=== PATIENT | male | born 1960 | race Caucasian/White ===

== ENCOUNTER 2025-06-30 08:55 | Outpatient (CLI) | payer MEDICARE, SELFPAY ==
[2025-06-30 23:01] LABS: Hematocrit 46.9 % (42.0-52.0); Hemoglobin 14.7 g/dL (14.1-18.0); Immature Granulocytes % 0.2 %; Mean Corpuscular HGB Conc 31.3 g/dL (31.8-35.4); Mean Corpuscular Hemoglobin 31.0 pg (27.0-31.2); Mean Corpuscular Volume 98.9 fl (80-94); Nucleated Red Blood Cells % 0 %; Platelet Count 211 K/mm3 (142-424); Red Blood Count 4.74 M/mm3 (4.60-6.20); Red Cell Distribution Width-SD 47.8 fL; White Blood Count 5.9 K/mm3 (4.8-10.8)
[2025-06-30 23:15] LABS: Alanine Aminotransferase 17 U/L (12-78); Albumin Level 4.4 g/dl (3.5-5.0); Albumin/Globulin Ratio 1.9 (1.1-1.8); Alkaline Phosphatase 71 U/L (38-126); Anion Gap 15.8 mEq/L (5-15); Aspartate Amino Transferase 25 U/L (17-59); Bilirubin,Total 0.5 mg/dl (0.2-1.3); Blood Urea Nitrogen 14 mg/dl (9-20); Calcium 9.3 mg/dl (8.4-10.2); Carbon Dioxide 27 mmol/L (22.0-30.0); Chloride 101 mmol/L (98-107); Cholesterol 199 mg/dl (140-200); Creatinine,Serum 0.70 mg/dl (0.66-1.25); Estimated Glomerular Filt Rate 113 ml/min (>60); GFR (African American) 137 ML/MIN (>60); Globulin 2.3 g/dL (1.3-3.2); Glucose 52 mg/dl (74-100); HDL Cholesterol 35 mg/dl (40-60); Potassium 4.8 mmoL/L (3.5-5.1); Sodium 139 mmol/L (136-145); Total Protein,Serum 6.7 g/dl (6.3-8.2); Triglycerides 240 mg/dl (30-150)
[2025-06-30 23:45] LABS: Thyroid Stimulating Hormone 1.57 uIU/mL (0.465-4.68)
== END 2025-06-30 23:59 ==
LOC: LAB.DROPOF 07-01 10:00
PROVIDERS: PCP Family Medicine; Visit Provider Family Medicine
DX: I10 Essential (primary) hypertension (principal); Z11.4 Encounter for screening for human immunodeficiency virus [HIV]
CPT/HCPCS: 80053; 80061; 84443; 85025; 87389

== ENCOUNTER 2025-07-07 14:45 | Outpatient (CLI) | payer MEDICARE, SELFPAY ==
--- NOTE | 2025-07-07 15:30 | CT_ITS ---
FINAL REPORT TECHNIQUE: Thin section axial images were obtained through the lungs using a low-dose technique per lung cancer screening protocol. Reconstruction images were obtained using the axial data. Exam was performed using dose reduction technique. This study was performed with techniques to keep radiation doses as low as reasonably achievable (ALARA). Individualized dose reduction techniques using automated exposure control or adjustment of mA and/or kV according to the patient's size were employed. CLINICAL HISTORY: lung cancer screening smoker 1 ppd x 57 years COMPARISON: None FINDINGS: CTDLvol: 2.90 DLP: 116.72 Current smoker 57 pack year history Lungs: No acute pulmonary abnormality. Biapical scarring is present. There is discoid atelectasis in the lingula. There is evidence of prior granulomatous disease. There is a small focal reticulonodular opacity in the right middle lobe best seen on image #75 of series 4. Favor that this represents infectious or inflammatory etiology. Lymph nodes: No thoracic lymphadenopathy. Mediastinum: Heart size is normal. Pleura/pericardium: No pleural or pericardial effusion. Other: Pancreatic calcifications are noted, consistent with chronic pancreatitis. IMPRESSION: Small focal reticulonodular opacity in the right middle lobe, most likely infectious or inflammatory. Lung RADS: 0S, the S designation for chronic pancreatitis. Recommendation: 3-month follow-up LDCT. Reviewed, Interpreted and Dictated by Shari Schwartz MD Transcribed by Stephanie Vidal Authenticated and [facility]
== END 2025-07-07 23:59 | disposition home or self-care (01) ==
LOC: RAD 14:46
PROVIDERS: PCP Family Medicine; Visit Provider Family Medicine
DX: Z12.2 Encounter for screening for malignant neoplasm of respiratory organs (principal); F17.210 Nicotine dependence, cigarettes, uncomplicated; R91.1 Solitary pulmonary nodule; J98.4 Other disorders of lung; K86.89 Other specified diseases of pancreas
CPT/HCPCS: 71271